=== PATIENT | male | born 1995 | race Caucasian/White ===

== ENCOUNTER 2017-05-14 10:44 | Emergency (ER) | payer MEDICAID, OTHER ==
[~2017-05-14] VITALS: Ht 175.3 cm; Wt 65.0 kg
[~2017-05-14 10:44] MED LIST: LOPE2TAB3 PO; ZOFR4TAB3 SL
[2017-05-14 10:45] VITALS: BP 140/86; PULSE 114; RESP 28; TEMP 100; O2SAT 98
[2017-05-14] MEDS ORDERED: AZITHROMYCIN INJ 500 MG in SODIUM CHLOR 0.9% 250 ML INJ 250 ML IV STA (10:55)
[2017-05-14] MEDS ORDERED: SODIUM CHLOR 0.9% 1000 ML INJ 100 ML IV ONE (10:55)
[2017-05-14] MEDS ORDERED: SODIUM CHLOR 0.9% 1000 ML INJ 1,000 ML IV ONE ×2 (10:55)
[2017-05-14] MEDS ORDERED: LEVOFLOXACIN 750 MG PREMIX INJ 150 ML IV STA (10:55)
[2017-05-14] MEDS ORDERED: KETOROLAC TROMETHAMINE 30 MG/ML (IVP) VIAL IV PUSH ONE (11:00)
[2017-05-14] MEDS ORDERED: ACETAMINOPHEN 325 MG TAB PO ONE (11:00)
[2017-05-14 11:37] LABS: BLOOD, URINE MOD (NEG); GLUCOSE,URINE 70 mg/dL (NEG); KETONE, URINE 10 mg/dL (NEG); MUCUS URINE FEW /lpf (OCC); NITRITE,URINE NEG (NEG); PH, URINE 6.5 (5.0-8.5); TRANSITIONAL EPI CELLS, URINE <1 /hpf; URINE COLOR YELLOW (YELLW/STRAW)
[2017-05-14 11:38] LABS: COMMENT (UR) CATH-CULT NOT IND; CULTURE IF INDICATED CATH CULTURE NOT IND
[2017-05-14 11:51] LABS: ALT (GPT) 22 U/L (12-78); ANION GAP 11 MEQ/L (5-15); AST (GOT) 17 U/L (15-37); BICARBONATE 24.5 MEQ/L (21.0-32.0); BLOOD UREA NITROGEN 17 MG/DL (7-18); CHLORIDE 107 MEQ/L (98-107); GLOMERULAR FILTRATION RATE 74 ML/MIN (>89); POTASSIUM 3.6 MEQ/L (3.5-5.1); SODIUM (NA) 142 MEQ/L (136-145)
[2017-05-14 11:54] LABS: ALKALINE PHOSPHATASE 110 U/L (45-117); TOTAL BILIRUBIN ADULT 0.7 MG/DL (0.2-1.0)
--- NOTE | 2017-05-14 11:57 | RADRPT ---
EXAM DATE/TIME: 05/14/2017 11:18 [facility] COMPARISON: No previous studies available for comparison. INDICATIONS : Chest pain, cough, and congestion. MEDICAL HISTORY : None. SURGICAL HISTORY : None. ENCOUNTER: Initial ACUITY: 3 days PAIN SCORE: 5/10 LOCATION: Bilateral chest FINDINGS: A single view of the chest demonstrates the lungs to be symmetrically aerated without evidence of mas s, infiltrate or effusion. The cardiomediastinal contours are unremarkable. Osseous structures are intact. CONCLUSION: Normal examination. Dami Holland MD on May 14, 2017 at 11:55 Board Certified Radiologist. This report was verified electronically.
[2017-05-14 12:03] LABS: AUTOMATED NEUTROPHIL # 10.6 TH/MM3 (1.8-7.7); BASOPHIL % 0.2 % (0.0-2.0); EOSINOPHIL # 0.1 TH/MM3 (0-0.4); EOSINOPHIL % 0.7 % (0.0-4.0); HEMATOCRIT 46.4 % (39.0-51.0); HEMO FLAGS DIFF FINAL; MEAN CELL VOLUME 92.7 FL (80.0-100.0); MEAN CORPUSCULAR HEMOGLOBIN 31.9 PG (27.0-34.0); MEAN CORPUSCULAR HGB CONC 34.4 % (32.0-36.0); MONO % 9.6 % (0.0-8.0); NEUT % 75.5 % (16.0-70.0); PLATELET COUNT 193 TH/MM3 (150-450); RED BLOOD COUNT 5.01 MIL/MM3 (4.50-5.90); RED CELL DISTRIBUTION WIDTH 12.4 % (11.6-17.2)
[2017-05-14] MEDS ORDERED: IOHEXOL 350 MG/ML 10 ML VIAL (for RAD DIAG) IV ONE (13:22)
[2017-05-14 13:23] LABS: LACTIC ACID GHOST NOT REPORTABLE
--- NOTE | 2017-05-14 13:34 | RADRPT ---
EXAM DATE/TIME: 05/14/2017 12:56 [facility] COMPARISON: No previous studies available for comparison. INDICATIONS : Right sided chest pain for one week. IV CONTRAST: 70 cc Omnipaque 350 (iohexol) IV RADIATION DOSE: 7.48 CTDIvol (mGy) MEDICAL HISTORY : None SURGICAL HISTORY : None. ENCOUNTER: Initial ACUITY: 1 day PAIN SCALE: 7/10 LOCATION: Right chest TECHNIQUE: Volumetric scanning of the chest was performed using a pulmonary embolism protocol MIP images were re constructed. Using automated exposure control and adjustment of the mA and/or kV according to patien t size, radiation dose was kept as low as reasonably achievable to obtain optimal diagnostic quality images. FINDINGS: PULMONARY ARTERIES: No filling defects are seen in the pulmonary arteries through the segmental level. LUNGS: Examination is abnormal. Patchy somewhat nodular groundglass opacities in the right middle lobe and l eft lower lobe. More subtle groundglass opacities at the extreme right lung base. There are more foca l sub-solid nodular opacities in the right middle lobe measuring 6 mm and 8 mm. There is associated s ubtle bronchiectasis particularly in the left lower lobe. PLEURAE: There is no pleural thickening or pleural effusion. MEDIASTINUM: Right hilar francisco prominence measuring up to 2 x 1.8 cm. Otherwise, no significant mediastinal or hil ar adenopathy. Heart is a normal in appearance without pericardial effusion. MUSCULOSKELETAL: Within normal limits for patient age. MISCELLANEOUS: The visualized upper abdominal organs demonstrate no acute abnormality. CONCLUSION: 1. No evidence for pulmonary artery embolism to the subsegmental level as questioned. 2. Abnormal examination the lungs with patchy nodular groundglass opacities in the right middle lobe, left lower lobe and less prominently in the extreme right lung base, as above. Differential consider ations include aspiration versus atypical infection. Followup to resolution is recommended. Julius Weber MD on May 14, 2017 at 13:22 Board Certified Radiologist. This report was verified electronically.
--- NOTE | 2017-05-14 13:47 | PD ---
HPI Chief Complaint: Cold / Flu Symptoms Time Seen by Provider: 10:55 Travel History International Travel<30 days: No Contact w/Intl Traveler<30days: No Traveled to known affect area: No History of Present Illness HPI PT HAS HAD COUGH ON OFF FOR PAST 4 WEEKS, ON ABX, DIDN'T FINISH THEM...PT HAS BODY ACHES AND COUGH NONPROD, PFSH Past Medical History Medical History: Denies Significant Hx Diminished Hearing: No Immunizations Current: Yes Influenza Vaccination: No Past Surgical History Surgical History: No Previous Surgery Social History Alcohol Use: Yes (SOC) Tobacco Use: Yes (1 PPD) Substance Use: Yes (Marijuana a couple weeks ago) Allergies-Medications (Allergen,Severity, Reaction): Coded Allergies: Ceclor (Verified Allergy, Intermediate, rash, 05/14/17) Reported Meds & Prescriptions Reported Meds & Active Scripts Active No Active Prescriptions or Reported Medications Review of Systems Except as stated in HPI: all other systems reviewed are Neg Respiratory: Positive: Cough Physical Exam Narrative GENERAL: SKIN: Warm and dry. HEAD: Atraumatic. Normocephalic. EYES: Pupils equal and round. No scleral icterus. No injection or drainage. ENT: No nasal bleeding or discharge. Mucous membranes pink and moist. NECK: Trachea midline. No JVD. CARDIOVASCULAR: Regular rate and rhythm. RESPIRATORY: No accessory muscle use. RIGHT CRACKLES NOTED, NO WHEEZING GASTROINTESTINAL: Abdomen soft, non-tender, nondistended. Hepatic and splenic margins not palpable. MUSCULOSKELETAL: Extremities without clubbing, cyanosis, or edema. No obvious deformities. NEUROLOGICAL: Awake and alert. No obvious cranial nerve deficits. Motor grossly within normal limits. Five out of 5 muscle strength in the arms and legs. Normal speech. PSYCHIATRIC: Appropriate mood and affect; insight and judgment normal. Data Data Last Documented VS Vital Signs Date Time Temp Pulse Resp B/P Pulse Ox O2 Delivery O2 Flow Rate FiO2 05/14/17 12:43 22 05/14/17 11:44 100 Nasal Cannula 2 05/14/17 10:45 100.0 114 140/86 Orders Electrocardiogram (05/14/17 10:55) Complete Blood Count With Diff (05/14/17 10:55) Comprehensive Metabolic Panel (05/14/17 10:55) Lactic Acid Sepsis Protocol (05/14/17 10:55) Urinalysis - C+S If Indicated (05/14/17 10:55) Influenzae A/B Antigen (05/14/17 10:55) Blood Culture (05/14/17 10:55) Sputum Culture And Gram Stain (05/14/17 10:55) Pneumococcal Urinary Antigen (05/14/17 10:55) Legionella Urinary Antigen (05/14/17 10:55) Chest, Single Ap (05/14/17 10:55) Blood Glucose (05/14/17 10:55) Ecg Monitoring (05/14/17 10:55) Iv Access Insert/Monitor (05/14/17 10:55) Oximetry (05/14/17 10:55) Oxygen Administration (05/14/17 10:55) Acetaminophen (Tylenol) (05/14/17 11:00) Azithromycin Inj (Zithromax Inj) (05/14/17 10:55) Levofloxacin 750 Mg Premix Inj (Levaquin (05/14/17 10:55) Sodium Chlor 0.9% 1000 Ml Inj (Ns 1000 M (05/14/17 10:55) Sodium Chlor 0.9% 1000 Ml Inj (Ns 1000 M (05/14/17 10:55) Sodium Chlor 0.9% 1000 Ml Inj (Ns 1000 M (05/14/17 10:55) Ketorolac Inj (Toradol Inj) (05/14/17 11:00) Ct Pulmonary Angiogram (05/14/17 12:00) Iohexol 350 Inj (Omnipaque 350 Inj) (05/14/17 13:22) Labs Laboratory Tests Test 05/14/17 05/14/17 11:00 11:15 Urine Color YELLOW Urine Turbidity CLEAR Urine pH 6.5 Urine Specific [place] 1.022 Urine Protein TRACE mg/dL Urine Glucose (UA) 70 mg/dL Urine Ketones 10 mg/dL Urine Occult Blood MOD Urine Nitrite NEG Urine Bilirubin NEG Urine Urobilinogen LESS THAN 2.0 MG/DL Urine Leukocyte Esterase NEG Urine RBC 30 /hpf Urine WBC 2 /hpf Urine Transitional Epithelial <1 /hpf Cells Urine Mucus FEW /lpf Microscopic Urinalysis Comment CATH-CULT NOT IND Sodium Level 142 MEQ/L Potassium Level 3.6 MEQ/L Chloride Level 107 MEQ/L Carbon Dioxide Level 24.5 MEQ/L Anion Gap 11 MEQ/L Blood Urea Nitrogen 17 MG/DL Creatinine 1.21 MG/DL Estimat Glomerular Filtration 74 ML/MIN Rate Random Glucose 142 MG/DL Lactic Acid Level 3.4 mmol/L Calcium Level 9.6 MG/DL Total Bilirubin 0.7 MG/DL Aspartate Amino Transf 17 U/L (AST/SGOT) Alanine Aminotransferase 22 U/L (ALT/SGPT) Alkaline Phosphatase 110 U/L Total Protein 8.2 GM/DL Albumin 4.0 GM/DL White Blood Count 14.0 TH/MM3 Red Blood Count 5.01 MIL/MM3 Hemoglobin 16.0 GM/DL Hematocrit 46.4 % Mean Corpuscular Volume 92.7 FL Mean Corpuscular Hemoglobin 31.9 PG Mean Corpuscular Hemoglobin 34.4 % Concent Red Cell Distribution Width 12.4 % Platelet Count 193 TH/MM3 Mean Platelet Volume 9.4 FL Neutrophils (%) (Auto) 75.5 % Lymphocytes (%) (Auto) 14.0 % Monocytes (%) (Auto) 9.6 % Eosinophils (%) (Auto) 0.7 % Basophils (%) (Auto) 0.2 % Neutrophils # (Auto) 10.6 TH/MM3 Lymphocytes # (Auto) 2.0 TH/MM3 Monocytes # (Auto) 1.3 TH/MM3 Eosinophils # (Auto) 0.1 TH/MM3 Basophils # (Auto) 0.0 TH/MM3 CBC Comment DIFF FINAL Differential Comment MDM Medical Decision Making Medical Screen Exam Complete: Yes Emergency Medical Condition: Yes Medical Record Reviewed: Yes Differential Diagnosis PE V PNA V FLU V OH Narrative Course PT CXR NEG FOR PNA, FLU POSITIVE, CT CHEST NEG FOR PE BUT HAS FINDINGS C/W VIRAL INFILTRATES Diagnosis Primary Impression: Influenza Additional Impression: Bronchospasm Patient Instructions: General Instructions, Influenza (DC) Scripts Oseltamivir (Tamiflu)75 Mg Cap75 Mg PO BID #10 CAP Ref 0 Prov:Mir Dee MD 05/14/17 Albuterol 6.7 GM Inh (Proventil Hfa 6.7 GM Inh)90 Mcg/Act Aer1 Puff INH Q4H PRN (SHORTNESS OF BREATH) #1 INHALER Ref 0 Prov:Mir Dee MD 05/14/17 Methylprednisolone Dosepak (Medrol Dosepak)4 Mg Dspk4 Mg PO DIRECTED #1 DSPK Ref 0 Per Pharmacist direction Prov:Mir Dee MD 05/14/17 Disposition: 01 DISCHARGE HOME Condition: Stable Mir Dee MD May 14, 2017 13:47
[2017-05-14] MEDS ORDERED: MEDR4PAK PO (13:55)
[2017-05-14] MEDS ORDERED: OSEL75 PO (13:55)
[2017-05-14] MEDS ORDERED: ALBU6.7H INH (13:55)
[2017-05-14 13:56] VITALS: BP 115/67; PULSE 92; RESP 25; TEMP 98.1; O2SAT 98
--- NOTE | 2017-05-15 14:18 | EKG ---
Date Performed: 05/14/2017 Time Performed: 11:15:58 PTAGE: 21 years EKG: SINUS TACHYCARDIA ABNORMAL RHYTHM ECG NO PREVIOUS TRACING DOCTOR: Gurdeep Dietrich Interpretating Date/Time 05/15/2017 14:15:18
== END 2017-05-14 15:06 | disposition home or self-care (01) ==
LOC: NEPC 10:44
DX: J11.1 Influenza due to unidentified influenza virus with other respiratory manifestations (principal); R00.0 Tachycardia, unspecified; R94.31 Abnormal electrocardiogram [ECG] [EKG]; F17.200 Nicotine dependence, unspecified, uncomplicated
CPT/HCPCS: 71010; 71275; 80053; 81001; 83605; 85025; 87040; 87070; 87205; 87449; 87804; 93005; 96361; 96365; 96366; 96375; 99285; J0456; J1885; J1956; J7030; J7050; Q9967